=== PATIENT | female | born 1960 | race Caucasian/White ===

== ENCOUNTER 2018-09-23 09:50 | Emergency (ER) | payer OTHER ==
[2018-09-23 09:59] VITALS: BP 122/57
--- NOTE | 2018-09-23 10:08 | UC ---
General HPI - HPI Summary HPI Summary: RN notes - tick bite to left thigh and bug bite to right arm Two day c/o R forearm bites, redness. Seen at outlying walk in [place], rx'd for sting / bite. However, at home noticed at tick on left hip, which her removed. No fever / chills. No sob / cp / palpitations. Last tet unk - requests booster. - History of Current Complaint Chief Complaint: UCSkin Stated Complaint: TICK Time Seen by Provider: 09/23/18 10:07 Hx Obtained From: Patient Pain Intensity: 0 - Allergy/Home Medications Allergies/Adverse Reactions: Allergies Allergy/AdvReac Type Severity Reaction Status Date / Time Penicillins Allergy hive Verified 09/23/18 10:00 Home Medications: Home Medications Citalopram Hydrobromide [Citalopram HBr] 1 tab PO DAILY 09/23/18 [History Confirmed 09/23/18] PMH/Surg Hx/FS Hx/Imm Hx Previously Healthy: Yes - Surgical History Surgical History: Yes Surgery Procedure, Year, and Place: partial hysterectomy. dental - Social History Alcohol Use: None Substance Use Type: None Smoking Status (MU): Heavy Every Day Tobacco Smoker Type: Cigarettes Amount Used/How Often: 1/3 PPD Length of Time of Smoking/Using Tobacco: 34 years Have You Smoked in the Last Year: Yes Review of Systems All Other Systems Reviewed And Are Negative: Yes Constitutional: Positive: Negative Skin: Positive: Other - see hpi Eyes: Positive: Negative ENT: Positive: Negative Respiratory: Positive: Negative Cardiovascular: Positive: Negative Gastrointestinal: Positive: Negative Genitourinary: Positive: Negative Motor: Positive: Other - see hpi Neurovascular: Positive: Negative Musculoskeletal: Positive: Other: - see hpi Neurological: Positive: Negative Psychological: Positive: Negative Is Patient Immunocompromised?: No Physical Exam Triage Information Reviewed: Yes Appearance: Well-Appearing, Well-Nourished Vital Signs: Initial Vital Signs Temp 99.6 F 09/23/18 09:55 Pulse 60 09/23/18 09:55 Resp 17 09/23/18 09:55 BP 122/57 09/23/18 09:55 Pulse Ox 100 09/23/18 09:55 Vital Signs Reviewed: Yes Eye Exam: Normal ENT Exam: Normal Neck: Positive: Supple Respiratory Exam: Normal - RR normal, no tachypnea, no dyspnea. Voice hoarse Cardiovascular Exam: Normal - HR normal. nondiaphoretic. Abdominal Exam: Normal - benign Musculoskeletal Exam: Normal - see "skin" further details Neurological Exam: Normal - grossly nonfocal Psychological Exam: Normal - conversing easily and appropriately. nad Skin Exam: Other - Multiple areas of redness R forearm, L lateral hip. These areas are c/w insect or arachnid bite. L hip is suspicous for tick bite, naveen since pt reports that her pulled out a tick last evening from the site. R upper forearm with small mild abrasion, a little red, not purulent. R wrist - apprx 3cm x 3cm redness with central white bite like site. mid forearm L irregular redness, approx 6cm x 6cm blanching, with central round redness, nonblanching approx 1cm diam. L lat hip redness minimal non-blanching apprx 6.5cm x 4.0cm with central non-blanching redness approx 2.5cm x 1.8cm. Nonfluctuant. Red areas are mildly indurated. No asia streaking, albeit some irregularity in shapes of redness. The Course/Dx - Course Course Of Treatment: Reviewed coa / tx plan. Questions as posed answered to the best of my ability. Aso advised to cut down caffeine intake - Diagnoses Provider Diagnosis: Cellulitis, Bite Discharge - Sign-Out/Discharge Documenting (check all that apply): Patient Departure All imaging exams completed and their final reports reviewed: No Studies - Discharge Plan Condition: Stable Disposition: HOME Prescriptions: DOXYcycline CAP(*) [DOXYcycline 100MG CAP(*)] 100 mg PO BID 21 Days #42 cap Mupirocin 2% OINT* [Bactroban 2 % Oint*] 1 applic TOPICAL BID 5 Days #1 tube Patient Education Materials: Cellulitis (ED), Insect Bite or Sting (ED), Diphtheria/Acellular Pertussis/Tetanus Booster Vaccine (By injection) Referrals: Real MICHAELS,Cristóbal Bell [Primary Care Provider] - Additional Instructions: Do: apply thin layer of 50/50 hydrocortisone / mupirocin (prescription) to affected sores twice daily for 5 days. Light cover with bandaid as needed (not airtight). Do not soak in standing water more than 5 minutes Do not: apply pressure (ex avoid upper margin of pants causin pressure to sores use astringents (ex avoid rubbing alcohol, hydrogen peroxide, etc) Please follow up with Dr. Noble, in the next month if possible. Please seek medical attention for any worse or new problems. Please let Dr. Noble know that you had a tetanus immunization booster today. Bring today's paperwork with you to Dr. Noble's appointment. Antibiotic hydrate avoid prolonged direct sun exposure while taking doxycycline - Billing Disposition and Condition Condition: STABLE Disposition: Home
[2018-09-23] MEDS ORDERED: Tetan/Diph/Pertus SYR(Tdap)* 0.5 ML SYR(BOOSTRIX) use SYR IM ONE (10:28)
== END 2018-09-23 10:48 | disposition home or self-care (01) ==
LOC: UCEAST 09:50
DX: T63.481A Toxic effect of venom of other arthropod, accidental (unintentional), initial encounter (principal); Y92.9 Unspecified place or not applicable; L03.113 Cellulitis of right upper limb; F17.210 Nicotine dependence, cigarettes, uncomplicated; Z88.0 Allergy status to penicillin
CPT/HCPCS: 90471; 90715; 99212; G0463